=== PATIENT | female | born 1955 | race Caucasian/White ===

== ENCOUNTER → 2017-12-02 | Outpatient (CLI) | payer OTHER | END | disposition home or self-care (01) | LOC: CFH 08:47 | PROVIDERS: ATTEND Family Medicine | DX: Z12.31 Encounter for screening mammogram for malignant neoplasm of breast (principal) | CPT/HCPCS: 77067 ==

== ENCOUNTER 2018-01-20 20:48 | Emergency (ER) | payer OTHER ==
[~2018-01-20] VITALS: Ht 167.6 cm; Wt 130.0 kg
[2018-01-20] MEDS ORDERED: ALBUTEROL/IPRATROPIUM 2.5MG/0.5MG, 3 ML ONE (21:48)
[2018-01-20 22:00] LABS: BASOPHILS % (AUTO) 0 % (0-1); EOSINOPHILS # (AUTO) 0.17 x10^3/uL (0-0.4); EOSINOPHILS % (AUTO) 2 % (1-7); LYMPHOCYTES # (AUTO) 1.88 x10^3/uL (1-3.4); LYMPHOCYTES % (AUTO) 19 % (22-44); MD NO; MEAN CORPUSCULAR HEMOGLOBIN 28.9 pg (27.0-34.8); MEAN CORPUSCULAR HGB CONC 32.3 g/dL (32.4-35.8); MEAN CORPUSCULAR VOLUME 89.5 fL (80-100); MEAN PLATELET VOLUME 9.6 fL (7.4-10.4); MONOCYTES # (AUTO) 0.13 x10^3/uL (0.2-0.8); MONOCYTES % (AUTO) 1 % (2-9); NEUTROPHILS # (AUTO) 7.86 x10^3/uL (1.8-6.8); NEUTROPHILS % (AUTO) 78 % (42-75); PLATELET COUNT 207 x10^3/uL (130-400); RED BLOOD COUNT 4.77 x10^6/uL (3.82-5.3); RED CELL DISTRIBUTION WIDTH 15.3 % (9.6-15.2)
[2018-01-20] MEDS ORDERED: ALBUTEROL/IPRATROPIUM 2.5MG/0.5MG, 3 ML NPPB SCH (22:00)
[2018-01-20 22:08] LABS: ALBUMIN 3.6 g/dL (3.4-5.0); ANION GAP 8 mmol/L (5-15); CALCIUM 9.6 mg/dL (8.5-10.1); CHLORIDE 108 mmol/L (98-107); CREATININE 0.69 mg/dL (0.55-1.02)
[2018-01-20 22:12] LABS: TROPONIN I < 0.015 ng/mL (0.000-0.045)
[2018-01-20 22:28] VITALS: BP 134/54
== END 2018-01-20 23:27 | disposition home or self-care (01) ==
LOC: ED 22:38
DX: J45.41 Moderate persistent asthma with (acute) exacerbation (principal); I10 Essential (primary) hypertension; E11.9 Type 2 diabetes mellitus without complications
CPT/HCPCS: 36415; 71046; 80048; 82040; 83880; 84484; 85025; 93005; 94640; 99285; J7512; J7620

== ENCOUNTER 2018-02-07 22:02 | Emergency (ER) | payer OTHER ==
[~2018-02-07] VITALS: Ht 167.6 cm; Wt 132.4 kg
[2018-02-07 22:10] VITALS: BP 153/83
[2018-02-07] MEDS ORDERED: IBUPROFEN 200 MG TABLET ONE (22:35)
[2018-02-07] MEDS ORDERED: IBUPROFEN 200 MG TABLET PO ONE (23:00)
== END 2018-02-07 23:23 | disposition home or self-care (01) ==
LOC: ED 23:22
DX: M79.672 Pain in left foot (principal); M19.072 Primary osteoarthritis, left ankle and foot; E11.9 Type 2 diabetes mellitus without complications; I10 Essential (primary) hypertension
CPT/HCPCS: 99284

== ENCOUNTER 2019-04-28 14:29 | Emergency (ER) | payer OTHER ==
[~2019-04-28] VITALS: Ht 167.6 cm; Wt 128.0 kg
--- NOTE | 2019-04-28 14:46 | NUR ---
PT WITH C/O N/V X 2 DAYS. PT DENIES ABD PAIN. PT RECENTLY ADMITTED FOR UTI 2 DAYS AGO AND WAS DISCHARGED HOME ON ABX. PT DENIES CP/SOB
[2019-04-28 14:55] VITALS: BP 142/79
[2019-04-28] MEDS ORDERED: IBUPROFEN 200 MG TABLET ONE (15:17)
[2019-04-28] MEDS ORDERED: ONDANSETRON 2MG/ML, 2ML ONE (15:17)
[2019-04-28 15:27] LABS: BASOPHILS # (AUTO) 0.02 x10^3/uL (0-0.1); BASOPHILS % (AUTO) 0 % (0-1); EOSINOPHILS # (AUTO) 0.02 x10^3/uL (0-0.4); EOSINOPHILS % (AUTO) 0 % (1-7); LYMPHOCYTES # (AUTO) 1.11 x10^3/uL (1-3.4); LYMPHOCYTES % (AUTO) 11 % (22-44); MD NO; MEAN CORPUSCULAR HEMOGLOBIN 29.8 pg (27.0-34.8); MEAN CORPUSCULAR HGB CONC 32.6 g/dL (32.4-35.8); MEAN CORPUSCULAR VOLUME 91.5 fL (80-100); MEAN PLATELET VOLUME 8.9 fL (7.4-10.4); MONOCYTES # (AUTO) 0.52 x10^3/uL (0.2-0.8); MONOCYTES % (AUTO) 5 % (2-9); NEUTROPHILS % (AUTO) 83 % (42-75); PLATELET COUNT 226 x10^3/uL (130-400); RED BLOOD COUNT 4.89 x10^6/uL (3.82-5.3); RED CELL DISTRIBUTION WIDTH 14.5 % (9.6-15.2)
[2019-04-28] MEDS ORDERED: ONDANSETRON 2MG/ML, 2ML IVPush ONE (15:30)
[2019-04-28] MEDS ORDERED: IBUPROFEN 200 MG TABLET PO ONE (15:30)
[2019-04-28 15:39] LABS: ALANINE AMINOTRANSFERASE 13 U/L (12-78); ALBUMIN 3.6 g/dL (3.4-5.0); ANION GAP 6 mmol/L (5-15); CALCIUM 9.6 mg/dL (8.5-10.1); CHLORIDE 107 mmol/L (98-107); CREATININE 0.72 mg/dL (0.55-1.02)
[2019-04-28 15:41] LABS: ALKALINE PHOSPHATASE 76 U/L (45-117); BILIRUBIN,TOTAL 0.5 mg/dL (0.2-1.0); TOTAL PROTEIN 7.8 g/dL (6.4-8.2)
[2019-04-28 15:56] LABS: CULTURE INDICATED? YES; MICROSCOPIC INDICATED
--- NOTE | 2019-04-28 17:10 | NUR ---
Patient/Caregiver given discharge instructions and they have confirmed that they understand the instructions. Patient ambulatory with steady gait.
[2019-05-04] MEDS ORDERED: FLUT1DIS IH (10:28)
[2019-05-04] MEDS ORDERED: ALBU8.5H8 INH (10:28)
[2019-05-04] MEDS ORDERED: LISI-167 PO (10:28)
[2019-05-04] MEDS ORDERED: FAMO20TA7 PO (10:28)
== END 2019-04-28 17:12 | disposition home or self-care (01) ==
LOC: ED 16:18
DX: N30.00 Acute cystitis without hematuria (principal); R11.2 Nausea with vomiting, unspecified
CPT/HCPCS: 36415; 76770; 80053; 81001; 83690; 85025; 87086; 96374; 99284; J2405